=== PATIENT | male | born 1980 | race Caucasian/White ===

== ENCOUNTER 2016-07-14 16:46 | Observation (INO) ==
[2016-07-14 18:07] LABS: Basophils # 0.1 10*3/uL (0.0-0.2); Basophils % 0.4 % (0.0-0.8); Eosinophils # 0.5 10*3/uL (0.0-0.87); Eosinophils % 3.1 % (0.00-10.9); Hematocrit 46.1 VOL% (42.0-52.0); Immature Granulocytes % 2.2 %; Immature Granulocytes Absolute 0.36 #; Lymphocytes # 3.8 10*3/uL (1.4-4.0); Lymphocytes % 23.3 % (21.2-54.2); Mean Corpuscular HGB Conc 34.7 GM/DL (32-36); Mean Corpuscular Hemoglobin 30 PG (27-34); Mean Corpuscular Volume 86.8 FL (87-102); Mean Platelet Volume 10.8 FL (9.6-12.0); Monocytes # 0.8 10*3/uL (0.11-0.8); Monocytes % 4.8 % (1.7-12.7); Neutrophils # 10.8 10*3/uL (1.4-7.4); Neutrophils % 66.2 % (38.7-73.9); Platelet Count 290 T/CUMM (130-400); Red Blood Count 5.31 MC/CUMM (3.8-5.5); Red Cell Distribution Width 13.6 % (9.3-17.3); White Blood Count 16.3 T/CUMM (4-12)
[2016-07-14 18:09] LABS: Apearance,Urine Slightly Hazy (Clear); Bacteria,Urine Occasional /HPF (Few); Bilirubin,Urine Negative (Negative); Blood, Urine Small mg/dL (Negative); Glucose,Urine (UA) Negative (Negative); Ketones,Urine Negative (Negative); Mucus,Urine Occasional /LPF (Occasional); Nitrite,Urine Negative (Negative); Protein,Urine Negative; RBC,Urine 1 /HPF (0-4); Urine Color Yellow (Yellow); Urine Urobilinogen < 2.0 EU/DL (0.2-1.0); WBC,Urine 1 /HPF (0-6)
[2016-07-14 18:23] LABS: Calcium 8.7 MG/DL (8.5-10.1); Magnesium 2.1 MG/DL (1.8-2.4); Osmolality,Calculated 288.7 MOS/KG (273-304); Potassium 3.8 MMOL/L (3.5-5.1)
[2016-07-14 18:30] LABS: Eosinophils 2 % (0-10); Lymphocytes 29 % (20-55); Segmented Neutrophils 64 % (50-85); Total Cells Counted 100
[2016-07-14 18:31] LABS: Platelet Estimate Adequate
[2016-07-14] MEDS ORDERED: ONDANSETRON 4 MG/2 ML VIAL ONE (18:56)
--- NOTE | 2016-07-14 18:57 | CT Report ---
CT head/brain wo con Indication: Loss of consciousness. Head injury. Mechanism of injury is not specified. Comparison: None. Technique: CT of the brain was performed without administration of intravenous contrast. The CT examination was performed using one or more of the following dose reduction techniques: Automatic exposure control, adjustment of the mA and kV according to patient size, use of acute or iterative reconstruction techniques. Findings: There is no evidence of acute intracranial hemorrhage, mass, or infarction. Ventricles appear within normal limits. The basal cisterns are patent. No significant abnormality is demonstrated to involve the posterior fossa or cerebellum. Orbits and globes demonstrate no evidence of significant pathology. The paranasal sinuses are clear. No significant abnormality is demonstrated to involve the mastoid air cells. The calvarium and overlying soft tissues demonstrate no evidence of acute pathology. Impression: 1. No CT evidence of acute intracranial pathology. 07/14/2016 6:44 PM PROCEDURE INTERPRETED AT [facility] DEPARTMENT OF RADIOLOGY Final Report Signed by: Dr. Collin Marie
--- NOTE | 2016-07-14 18:57 | CT Report ---
CT cervical spine wo con Indication: Neck pain status post injury. Mechanism of injury is not specified. Comparison: None. Technique: CT of the cervical spine was performed without administration of intravenous contrast. In addition to axial source images obtained from the skull base through the upper chest, coronal and sagittal MPR series were submitted for interpretation. The CT examination was performed using one or more of the following dose reduction techniques: Automatic exposure control, adjustment of the mA and kV according to patient size, use of acute or iterative reconstruction techniques. Findings: The base of the skull demonstrates no evidence of significant pathology. Alignment of the cervical spine is within normal limits. Previous anterior fusion has occurred at C6-7 with anterior plate application as well as intervertebral disc spacer. Cervical vertebral body heights are well maintained throughout the cervical spine. Intervertebral disc spaces are well maintained throughout the cervical spine. There is no evidence of cervical spine fracture. No significant central stenosis is suggested. Prevertebral soft tissues demonstrate no significant abnormalities. Carotid arteries appear within normal limits. The thyroid gland demonstrates no evidence of acute pathology. Imaged portion of the upper chest demonstrates no evidence of significant pathology. Impression: 1.No evidence of acute cervical spine pathology. 07/14/2016 6:43 PM PROCEDURE INTERPRETED AT [facility] DEPARTMENT OF RADIOLOGY Final Report Signed by: Dr. Collin Marie
--- NOTE | 2016-07-14 18:57 | XRay Report ---
XR pelvis AP 1 or 2 Views Indication: Trauma. Mechanism of injury is not specified. Comparison: None. Technique: AP view the pelvis was performed. Findings: Bony structures of the lumbar spine as well as the pelvis and bilateral proximal femurs demonstrate no evidence of acute fracture. Joint spaces appear well maintained. The bowel gas pattern demonstrates no significant abnormality. Soft tissues overlying the pelvis are grossly unremarkable. Impression: 1. No evidence of acute pathology affecting the pelvis or proximal femurs. 07/14/2016 6:40 PM PROCEDURE INTERPRETED AT [facility] [place] DEPARTMENT OF RADIOLOGY Final Report Signed by: Dr. Collin Marie
--- NOTE | 2016-07-14 18:57 | XRay Report ---
XR chest 1V portable Indication: Chest pain. Chest trauma. Comparison: None. Technique: Portable AP chest was performed. Findings: The heart size appears within normal limits. Pulmonary vasculature demonstrates no specific abnormality. Hilar structures demonstrate fairly symmetric appearance. The lungs appear clear. Bones and soft tissues demonstrate no evidence of acute pathology. Prior cervical fusion is demonstrated. Impression: 1. No evidence of acute pathology. 07/14/2016 6:39 PM PROCEDURE INTERPRETED AT [facility] DEPARTMENT OF RADIOLOGY Final Report Signed by: Dr. Collin Marie
--- NOTE | 2016-07-14 18:57 | CT Report ---
CT lumbar spine wo con Indication: Back pain following traumatic injury. Mechanism of injury is not specified. Comparison: None. Technique: Routine CT of the lumbar spine was performed without the administration of intravenous contrast. Axial images as well as coronal and sagittal MPR images of the lumbar spine was submitted for interpretation. The CT examination was performed using one or more of the following dose reduction techniques: Automatic exposure control, adjustment of the mA and kV according to patient size, use of acute or iterative reconstruction techniques. Findings: Lumbar vertebral bodies demonstrate normal alignment. Vertebral body height is well maintained throughout the lumbar spine. Intervertebral disc spaces demonstrate no significant abnormality. There is no evidence of significant central stenosis. Left and right transverse processes of L5 and vertical linear lucencies best visualized on the coronal series that could reflect bilateral nondisplaced fractures. The prevertebral soft tissues as well as posterior paraspinous musculature and imaged intra-abdominal contents demonstrate no evidence of acute pathology. Impression: 1. Bilateral transverse processes of L5 demonstrate peripherally located vertically oriented lucencies that could reflect nondisplaced fractures. Otherwise, no acute injury of the lumbar spine or evidence of significant central stenosis is demonstrated. 07/14/2016 6:45 PM PROCEDURE INTERPRETED AT [facility] DEPARTMENT OF RADIOLOGY Final Report Signed by: Dr. Collin Marie
--- NOTE | 2016-07-14 18:57 | CT Report ---
CT thoracic spine wo con Indication: Back pain status post injury. Mechanism of injury is not specified. Comparison: None. Technique: CT of the thoracic spine was performed without administration of intravenous contrast. In addition to multiple contiguous axial images obtained from the thoracic inlet through the thoracolumbar junction, coronal and sagittal MPR series were submitted for interpretation. The CT examination was performed using one or more of the following dose reduction techniques: Automatic exposure control, adjustment of the mA and kV according to patient size, use of acute or iterative reconstruction techniques. Findings: Alignment of the thoracic vertebral bodies is within normal limits. Vertebral body heights are fairly well maintained throughout the thoracic spine. No significant intervertebral disc space loss is demonstrated. No fractures are present. Bilaterally, the lungs demonstrate geographic regions of groundglass attenuation with polygonal margins as well as some areas of thickened interlobular septal lines. A component of volume loss is not excluded. Differential considerations in addition to dependent atelectasis could include interstitial edema or infection. No air space attenuation is present to suggest contusion. Impression: 1. No evidence of fracture involving the thoracic spine. 2. Abnormal appearance of the lung parenchyma may in part reflect dependent atelectasis. A component of interstitial edema is not excluded. 07/14/2016 6:47 PM PROCEDURE INTERPRETED AT [facility] DEPARTMENT OF RADIOLOGY Final Report Signed by: Dr. Collin Marie
[2016-07-14] MEDS ORDERED: ONDANSETRON 4 MG/2 ML VIAL IV STA (18:59)
[2016-07-14 19:06] LABS: Barbiturates Screen,Urine Negative (Negative); Benzodiazepines Screen,Urine Negative (Negative); Cannabinoid Screen,Urine Negative (Negative); Opiate Screen,Urine Negative (Negative); Phencyclidine Screen,Urine Negative (Negative)
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
--- NOTE | 2016-07-14 20:18 | CT Report ---
CT abdomen pelvis w con Indication: Generalized abdominal pain. Comparison: CT of the thoracic spine and CT lumbar spine same date. Technique: CT of the abdomen and pelvis was performed following administration of intravenous contrast. The CT examination was performed using one or more of the following dose reduction techniques: Automatic exposure control, adjustment of the mA and kV according to patient size, or iterative reconstruction techniques. Findings: Lower chest: Lungs demonstrate little change from comparison study. Liver: No mass lesions or acute findings are demonstrated. Gallbladder: The gallbladder demonstrates no significant abnormality. Spleen: Spleen is normal in size and appearance. Pancreas: Pancreas demonstrates no significant abnormality. Adrenal glands: The adrenal glands demonstrate no significant abnormalities. Kidneys: The kidneys demonstrate no significant abnormalities. Aorta: The aorta demonstrates no significant abnormality. Inferior vena cava: The inferior vena cava demonstrates no significant abnormality. Lymph nodes: No adenopathy is noted within the abdomen or pelvis. Stomach and bowel: The stomach, duodenum, small bowel, appendix, and large bowel demonstrate no significant abnormalities. Intrapelvic contents: Demonstrate no significant abnormalities. Skeletal structures: Findings within the thoracic and lumbar spine are reported separately on dedicated CTs of the thoracic and lumbar spine. The visualized rib cage is intact. Bony structure the pelvis and proximal femurs is intact. Soft tissues and muscular structure of the body wall: Demonstrate no significant abnormalities. Impression: 1. No acute findings within the abdomen or pelvis. 2. Little change in the lung parenchyma. 3. Findings within the thoracic and lumbar spine are reported separately. 07/14/2016 8:13 PM PROCEDURE INTERPRETED AT [facility] DEPARTMENT OF RADIOLOGY Final Report Signed by: Dr. Collin Marie
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
[2016-07-14] MEDS ORDERED: ONDANSETRON 4 MG/2 ML VIAL IV PRN (21:22)
[2016-07-14] MEDS ORDERED: ACETAMINOPHEN 325 MG TABLET PO PRN (21:22)
[2016-07-14] MEDS ORDERED: KETOROLAC 30 MG/1 ML VIAL ONE (21:25)
[2016-07-14] MEDS: LACTATED RINGERS 1,000 ML IV SCH (22:21)
[2016-07-14] MEDS: KETOROLAC 30 MG/1 ML VIAL IV SCH (22:21)
[2016-07-15] MEDS: HYDROmorphone 2 MG/1 ML VIAL IV PRN ×5 (01:55→20:29)
[2016-07-15] MEDS: KETOROLAC 30 MG/1 ML VIAL IV SCH ×5 (05:05→22:00)
[2016-07-15] MEDS: LACTATED RINGERS 1,000 ML IV SCH ×2 (07:24→16:07)
--- NOTE | 2016-07-15 07:54 | EKG Report ---
Stationary ECG Study [facility] ER Test Date: 07/14/2016 5:02:36 PM Pat Name: MIGDALIA RUIZ Department: Room: 536 Gender: M Respite Care Provider: LEONIE : 1980 Requested by: Kwan Vail Order Number: [id number] Reading MD: RAS CARPENTER Intervals [place] Rate: 99 P: 50 UT: 148 QRS: 16 QRSD: 102 T: 31 QT: 337 QTc: 393 Interpretive Statements SINUS RHYTHM Electronically Signed On 07-16-16 22:13:54 CDT by RAS CARPENTER [email or web address]
[2016-07-15] MEDS: PANTOPRAZOLE 40 MG TABLET PO SCH (09:54)
--- NOTE | 2016-07-15 12:15 | General Surgery Progress Note ---
Assessment and Plan (1) Superficial bruising Status: Acute Assessment and plan: Patient appears to have mostly superficial injuries with transverse process lumbar spine fractures at L5. We will repeat a chest x-ray this morning and feed him and discharged home if he is doing well no further injuries are seen on his chest x-ray. Current Visit: Yes Subjective Patient reports: Present: no new complaints, feels better, still having pain, pain is less, afebrile Narrative: Patient has low-grade temp and he does have some chest pain over his abrasions. No new complaints in his extremities or his abdomen. He feels hungry Exam - Constitutional Vitals: Period Temp Pulse Resp BP Sys/Ames Pulse Ox Last 24 Hr 96.7 F-99.7 F 74-102 18-20 121-147/56-94 89-99 General appearance: no acute distress, over weight - Head Head exam: Present: normal inspection, normocephalic - Eye Eye exam: Present: EOMI Pupils: Present: TERRY - ENT ENT exam: Present: normal exam Mouth exam: Present: normal external inspection, normal voice - Neck Neck exam: Present: normal inspection, trachea midline - Respiratory Respiratory exam: Present: clear to auscultation bilaterally. Absent: accessory muscle use, chest wall tenderness - Cardiovascular Cardiovascular exam: Present: RRR. Absent: systolic murmur, tachycardia - GI/Abdominal GI/Abdominal exam: Present: soft. Absent: tenderness, rebound - Extremities Exam Extremities exam: Present: normal inspection, normal capillary refill - Back Exam Back exam: Present: normal inspection - Neurological Exam Neurological exam: Present: alert, oriented X3 Speech: Present: normal - Skin Skin exam: Present: normal color, warm, other (The patient has multiple abrasions on his chest and abdomen and left lower leg. There is no new deep tenderness no further imaging tests are needed at this time based on his tertiary survey. ) Results - Labs CBC & BMP: 07/14/16 16:56 07/14/16 16:56 Quality Measures - Stroke Symptom Onset Unknown: No Specialty Discharge - Follow Up or Referrals
--- NOTE | 2016-07-15 14:05 | XRay Report ---
XR chest 2V Date: 07/15/2016 7:12 AM History: Chest trauma, chest pain Comparison: 07/14/2016 Technique: PA and lateral chest Findings: The heart is normal in size. Median sternotomy diffuse parenchymal findings in the lungs with progressive atelectasis at the left lung base. No pneumothorax is identified. Stable mediastinum with acute minimally displaced fracture of the sternum. Prior anterior cervical fusion with degenerative changes. Impression: Acute minimally displaced sternal fracture with overlying soft tissue swelling. Progressive atelectasis at the left lung base with no pneumothorax. Additional reduced contusion. Findings were discussed with Dr. Vail's nurse Cecy at 9:30 AM on 07/15/2016. PROCEDURE INTERPRETED AT [facility] DEPARTMENT OF RADIOLOGY Final Report Signed by: Dr. Evette Valentine
--- NOTE | 2016-07-15 14:06 | EKG Report ---
Stationary ECG Study [facility] Test Date: 07/15/2016 11:26:43 AM Pat Name: MIGDALIA RUIZ Department: Room: 536 Gender: M [place] [employer]: : 1980 Requested by: Mesfin Brown Order Number: [id number] Reading MD: RAS CARPENTER Intervals [place] Rate: 67 P: 48 AR: 140 QRS: 21 QRSD: 98 T: 40 QT: 396 QTc: 411 Interpretive Statements SINUS RHYTHM Electronically Signed On 07-18-16 15:24:15 CDT by RAS CARPENTER [email or web address]
--- NOTE | 2016-07-15 14:07 | CT Report ---
Referring physician: Kwan Vail EXAM: CT chest without contrast DATE: 07/15/2016 COMPARISON: CT thoracic spine 07/14/2016, 01/05/2016 REASON: Sternal fracture TECHNIQUE: Axial images of the chest were obtained without the use of IV contrast. Coronal and sagittal reformatted images were also provided. Total DLP is 709.1 mGy*cm. FINDINGS: The heart is normal in size with small cardiac fat pads. Limited evaluation of the vasculature and nodes without contrast. Evidence of an acute minimally displaced fracture of the mid sternum. There is an associated small hematoma. The amount of air adjacent to the sternum. Prior anterior cervical fusion. No pneumothorax with tiny pleural effusions. Additional diffuse parenchymal findings especially in the lower lobes and lingula. Calcified granulomata. Contracted gallbladder. IMPRESSION: Acute minimally displaced fracture of the mid sternum with associated small hematoma. Limited evaluation of the vasculature without contrast. Atelectasis/contusion in the lungs especially in the lower lobes with tiny pleural effusions. Evidence of old healed granulomatous disease. Prior anterior cervical fusion with contracted gallbladder. The CT exam was performed using one or more of the following dose reduction techniques: Automated exposure control and adjustment of the mA and/or kV according to patient size. PROCEDURE INTERPRETED AT [facility] DEPARTMENT OF RADIOLOGY Final Report Signed by: Dr. Evette Valentine
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
[2016-07-15] MEDS ORDERED: ENOXAPARIN 40 MG/0.4 ML SYRINGE SUBCUT SCH (21:00)
[2016-07-16] MEDS: LACTATED RINGERS 1,000 ML IV SCH ×3 (02:03→11:13)
[2016-07-16] MEDS: HYDROmorphone 2 MG/1 ML VIAL IV PRN ×2 (02:03→06:42)
[2016-07-16] MEDS: KETOROLAC 30 MG/1 ML VIAL IV SCH ×3 (03:30→09:58)
[2016-07-16 04:18] LABS: Osmolality,Calculated 283.3 MOS/KG (273-304); Potassium 4.1 MMOL/L (3.5-5.1)
[2016-07-16 07:31] VITALS: BP 136/78
--- NOTE | 2016-07-16 07:36 | CT Report ---
Referring physician: Kwan Vail EXAM: CT chest with contrast DATE: July 16, 2016 COMPARISON: CT chest July 15, 2016 REASON: Sternal fracture TECHNIQUE: Axial images of the chest were obtained after administration of 80 cc of Omnipaque 350 IV contrast. Coronal and sagittal reformatted images were also provided. Total DLP is 780.2 mGy*cm. FINDINGS: Vasculature/Heart: The thoracic aorta is normal in size without evidence of dissection. Note is made of a four-vessel arch. The pulmonary arteries appear patent as visualized. The heart is normal in size, and no pericardial effusion is seen. Lymph nodes: No suspicious adenopathy is seen at the chest. Other mediastinum: There is minimal ill-defined hemorrhage within the anterior mediastinum, likely associated with a sternal fracture. This is stable and difficult to measure. Lungs: There are scattered opacities within both lungs, mainly within the lower lobes and lingula. This is most consistent with atelectasis, but there could also be pulmonary contusion. Pneumonia is difficult to exclude but is felt less likely. A calcified granuloma is noted within the right upper lobe. No pneumothorax is identified, but there is trace bilateral pleural fluid. Bones: There is again an acute, minimally displaced fracture of the mid sternum (0.2 cm of displacement). Overlying soft tissue contusion is present. There is also surgical fusion at the cervical spine. Chest wall: There is a minimally displaced sternal fracture with associated soft tissue contusion as mentioned above. Upper abdomen: No acute process is seen within the upper abdomen. IMPRESSION: 1. There is again an acute, minimally displaced fracture of the mid sternum. Overlying soft tissue contusion is present, and there is minimal ill-defined hemorrhage within the anterior mediastinum. This appears stable compared to July 15, 2016. 2. There are again scattered opacities within both lungs, mainly within the lower lobes and lingula. This is also similar to before and likely represents atelectasis and possibly pulmonary contusion. There is also trace bilateral pleural fluid. The CT exam was performed using one or more of the following dose reduction techniques: Automated exposure control and adjustment of the mA and/or kV according to patient size. PROCEDURE INTERPRETED AT [facility] DEPARTMENT OF RADIOLOGY Final Report Signed by: Dr. Marino Nam
[2016-07-16] MEDS: PANTOPRAZOLE 40 MG TABLET PO SCH (09:17)
--- NOTE | 2016-07-16 10:18 | General Surgery Progress Note ---
Assessment and Plan (1) Superficial bruising Status: Acute Assessment and plan: Patient is doing well. He will be discharged home with follow-up with me in 1 month. Current Visit: Yes Subjective Patient reports: Present: no new complaints, feels better, still having pain, pain is less Narrative: CT scan with IV contrast today showed no vascular injuries. Exam - Constitutional Vitals: Period Temp Pulse Resp BP Sys/Ames Pulse Ox Last 24 Hr 97.6 F-98.5 F 56-75 16-20 136-149/77-88 94-99 General appearance: no acute distress, over weight - Head Head exam: Present: normal inspection, normocephalic - Eye Eye exam: Present: EOMI Pupils: Present: TERRY - ENT ENT exam: Present: normal exam Mouth exam: Present: normal external inspection, normal voice - Neck Neck exam: Present: normal inspection, trachea midline - Respiratory Respiratory exam: Present: clear to auscultation bilaterally, chest wall tenderness. Absent: accessory muscle use - Cardiovascular Cardiovascular exam: Present: RRR. Absent: systolic murmur, tachycardia - GI/Abdominal GI/Abdominal exam: Present: normal bowel sounds, soft. Absent: tenderness, rebound - Extremities Exam Extremities exam: Present: normal capillary refill, other (Scattered abrasions on both legs) - Back Exam Back exam: Present: normal inspection - Neurological Exam Neurological exam: Present: alert, oriented X3 Speech: Present: normal - Skin Skin exam: Present: normal color, warm Results - Labs CBC & BMP: 07/14/16 16:56 07/16/16 03:13 - Diagnostic Findings Procedure: CT - chest: image reviewed by me, report reviewed by me (Minimally displaced sternal fracture with small amount of mediastinal hematoma. No vascular injury. Pulmonary contusions.) Quality Measures - Stroke Symptom Onset Unknown: No Specialty Discharge - Follow Up or Referrals
== END 2016-07-16 12:28 | disposition home or self-care (01) ==
LOC: N.ED 16:46 → N.EDINP 16:46 → N.5E 20:57
PROVIDERS: ADMIT Surgery; ATTEND Surgery